=== PATIENT | male | born 1985 | race Caucasian/White ===

== ENCOUNTER → 2024-03-21 | Outpatient (CLI) | payer BC ==
[2024-03-21 11:06] VITALS: BP 144/76; PULSE 70; RESP 12; TEMP 98.2
--- NOTE | 2024-03-21 11:21 | P.SLEEP ---
History of Present Illness DATE: 03/21/2024 CONSULTATION/NEW PATIENT EVALUATION HISTORY OF PRESENT ILLNESS/SLEEP-WAKE EVALUATION: 38-year-old gentleman had been evaluated in the sleep center for possible obstructive sleep apnea hypopnea syndrome. SLEEP SCHEDULE: Usually sleep schedule from 11 PM to 7 AM on working days and from 11 PM to 7:30 AM on weekend. FALLING ASLEEP: No problems with falling asleep. DURING SLEEP: Patient wakes up from sleep 2 times and sometimes has difficulties to fall asleep again, patient prefers to sleep on the stomach position. No history of hypnogogical hallucinations, sleep paralysis, or cataplexy. DURING THE DAY/WAKE STATE: In the morning patient wake up tired, has episodes of irritability and anxiety. [place] sleepiness scale is 9, which is borderline. Patient may take nap at 2 PM on weekend. PAST MEDICAL HISTORY: Hypertension, episodes of atrial fibrillation. PAST SURGICAL HISTORY: None. MEDICATIONS: Lisinopril 20 mg once a day, metoprolol 20 milligram once a day. SOCIAL HISTORY: Please see below. FAMILY HISTORY: Please see below. REVIEW OF SYSTEMS: Awakenings from sleep, sleepiness during the day. No fevers. No double vision. No recent chest pain. No shortness of breath. No abdominal pain. No bleeding episodes. No blood in urine. No seizure episodes. PHYSICAL EXAMINATION: GENERAL: A pleasant patient without any distress. VITAL SIGNS: Please see below, weight 176.6 pounds, BMI 26.7. HEENT: PERRLA, EOMI. Evaluation of oropharynx showed tongue protrudes midline, low position of soft palate Mallampati 3. NECK: Supple. No JVD. Thyroid is not palpable. 15-3/4 inches in circumference. LUNGS: Clear to percussion and to auscultation. Good air exchange. No wheezing or rhonchi. HEART: S1, S2 regular. No murmurs, gallops or rubs. ABDOMEN: Soft and nontender. Bowel sounds are present. No organomegaly appreciated. EXTREMITIES: No clubbing or cyanosis. ENGINEER AND GEOLOGIST: Awake, alert, and oriented x3. Cranial nerves 2 to 7 intact. There is no fasciculation or atrophy noted. No focal deficits observed. ASSESSMENT: 1. Awakenings from sleep, small oropharyngeal airspace low position of soft palate Mallampati 3. Obstructive sleep apnea hypopnea syndrome. 2. Episodes of atrial fibrillation. 3. Hypertension. PLAN: 1. Home sleep apnea test for evaluation of patient's breathing during sleep. 2. Following plan after reading sleep study. 3. Preferable position during sleep on the side. 4. No driving if patient feels any sleepiness. Patient is aware of civil and criminal liability for unsafe driving. 5. Sleep hygiene with regular sleep time for at least 7.5-8 hours. 6. Watching weight. Thank you very much for referring this patient for consultation. Sincerely, Margarito Pope MD, PhD, FAASM. Diplomat of [place] [employer], Sleep Medicine Board by [place] [employer] [place] [employer] [facility] [place] cc: Cecilia Amado MD Past Medical History Past Medical History: GERD/Reflux, Hypertension History of Any Multi-Drug Resistant Organisms: None Reported Past Surgical History: No Surgical Hx Reported Past Anesthesia/Blood Transfusion Reactions: No Reported Reaction Past Psychological History: No Psychological Hx Reported Smoking Status: Never smoker Past Alcohol Use History: Occasional Additional Past Alcohol Use History / Comment(s): 3 times per week Past Drug Use History: None Reported - Past Family History Mother Family Medical History: Hyperlipidemia Father Family Medical History: Hypertension Medications and Allergies Home Medications Medication Instructions Recorded Confirmed Type Metoprolol Succinate [Kapspargo 25 mg PO DAILY 03/21/24 03/21/24 History Sprinkle] lisinopriL [Zestril] 20 mg PO DAILY 03/21/24 03/21/24 History Physical Exam Vitals: Vital Signs Temp Pulse Resp BP Pulse Ox 03/21/24 11:05 98.2 F 70 12 144/76 97 Intake and Output 03/20/24 03/21/24 03/21/24 22:59 06:59 14:59 Other: Weight 79.832 kg Sleep Note - Sleep Data ESS Total: 9 - Sleep Note Sleep Note: Temperature: 98.2 F Pulse Rate: 70 Respiratory Rate: 12 Blood Pressure: 144/76 SpO2: 97 Height: 5 ft 8 in Weight: 79.832 kg BMI: Neck Circumference: 15.7
== END ==
LOC: 3 N SLEEP 10:34
PROVIDERS: ATTEND Internal Medicine
DX: G47.33 Obstructive sleep apnea (adult) (pediatric) (principal); I48.91 Unspecified atrial fibrillation; I10 Essential (primary) hypertension; Z79.899 Other long term (current) drug therapy
CPT/HCPCS: 99202

== ENCOUNTER → 2024-05-30 | Outpatient (CLI) | payer BC ==
--- NOTE | 2024-06-01 13:34 | P.PCN ---
Description of Procedure: CLINICAL: A home sleep apnea test has been done for confirmation of possible obstructive sleep apnea-hypopnea syndrome. DESCRIPTION OF PROCEDURE: RESULTS: Recording time was 7 hours 40 minutes. Evaluation time was 7 hours 37 minutes. Evaluation time is sufficient for making conclusion about results of the test. Raw data of sleep recording has been reviewed and is adequate. Respiratory channel showed 0 apneas and 29 hypopneas. Apnea-hypopnea index was 3.6 per hour, on the back position 5.9. Pulse rate in the range between minimum 43, maximum 85, average 52 by computer calculation. Lowest desaturation was 85%. IMPRESSION: 1. No significant respiratory abnormalities following total apnea hypopnea index. Very mild abnormalities of respiration on the back position. Please see other impressions from consultation. PLAN: 1. I will see patient for follow-up visit to explain results of the test and recommendations 2. Preferable position during the sleep on the side, patient may consider tennis ball technique if necessary. 3. Sleep hygiene with regular time in bed for at least 8 hours. 4. No driving if feeling any sleepiness. Thank you very much for allowing me to participate in the management of your patient. Sincerely, Margarito Pope MD, PhD, FAASM Diplomat of [place] [employer] Sleep Medicine Board of [place] [employer] Customer Service Administrator of [facility] [place] cc: Cecilia Amado MD
== END ==
LOC: 3 N SLEEP 11:14
PROVIDERS: ATTEND Internal Medicine
DX: R06.89 Other abnormalities of breathing (principal)